=== PATIENT | male | born 1990 | race Caucasian/White ===

== ENCOUNTER → 2018-12-14 | Outpatient (CLI) | payer OTHER, SELFPAY ==
[2018-12-14 10:28] VITALS: BMI 27.9
[2018-12-14 22:14] LABS: Absolute Lymphocyte Count 2.23 X10^3/uL (0.83-4.51); Absolute Neutrophil Count 2.5 X10^3/uL (2.0-7.7); Basophil# 0.04 X10^3/uL; Basophil% 0.7 % (0-1); Eosinophils% 3.7 % (0-5); Hematocrit 45.9 % (40-54); Hemoglobin 15.8 g/dL (13.0-16.5); Lymphocyte # 2.23 X10^3/ul (4.0); Lymphocyte % 41.1 % (19-41); Mean Corp Hgb Conc 34.4 g/dL (32-36); Mean Corpuscular Hgb 32.9 pg (27.0-32.0); Mean Corpuscular Volume 95.6 fL (80-94); Mean Platelet Vol. 11.1 fl (6.2-12.0); Monocyte# 0.44 X10^3/uL; Monocyte% 8.1 % (0-10); NRBC Flagged by Analyzer 0 % (0-5); Neutrophil # 2.51 X10^3/uL (2.7-7.7); Neutrophil % 46.2 % (47-70); Platelet Count 166 K/mm3 (150-450); RBC Distribution Width CV 11.9 % (11.6-14.6); RBC Distribution Width SD 41.4 fl (35.1-43.9); White Blood Count 5.4 K/mm3 (4.4-11.0)
[2018-12-14 22:34] LABS: Luteinizing Hormone 14.1 mIU/mL; PSA,Total- Diagnostic 0.31 ng/mL (0.0-4.0); Thyroid Stim Hormone (TSH) 1.57 uIU/mL (0.358-3.74)
== END | disposition home or self-care (01) ==
PROVIDERS: Referring Provider Nurse Practitioner; Visit Provider Nurse Practitioner
DX: N52.9 Male erectile dysfunction, unspecified (principal); R79.89 Other specified abnormal findings of blood chemistry
CPT/HCPCS: 83002; 84153; 84403; 84443; 85025

== ENCOUNTER 2023-11-29 10:44 | Emergency (ER) | payer OTHER, SELFPAY ==
[2023-11-29 10:44] VITALS: BP 143/75; PULSE 90; RESP 14; TEMP 35.7; O2SAT 98; BMI 28.0
[2023-11-29] MEDS: morphine 10 MG/ML Syringe 8 MG IM (11:43)
[2023-11-29] MEDS: predniSONE 20 MG Tablet 40 MG PO (11:44)
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
[2023-11-29] MEDS: oxyCODONE 5 MG Tablet PO (12:20)
[2023-11-29 12:22] VITALS: BP 132/66; PULSE 78; RESP 16; TEMP 35.7; O2SAT 98
== END 2023-11-29 12:24 | disposition home or self-care (01) ==
PROVIDERS: Emergency Provider Emergency Medicine; Visit Provider Emergency Medicine
DX: M54.30 Sciatica, unspecified side (principal)
CPT/HCPCS: 96372; 99283

== ENCOUNTER 2023-11-30 11:27 | Observation (INO) | payer OTHER, SELFPAY ==
[2023-11-30] VITALS (7 sets, daily range): BP systolic 125–172; BP diastolic 46–77; PULSE 70–88; RESP 14–20; TEMP 36.6–36.7; O2SAT 95–100; BMI 30.1
--- NOTE | 2023-11-30 12:15 | MRI_ITS ---
STUDY: MRI LUMBAR SPINE WITHOUT CONTRAST REASON FOR EXAM: Male, 33 years old. PAIN X1 WK NKI TECHNIQUE: Standardized fat and water weighted pulse sequences were obtained in the sagittal and axial planes. COMPARISON: None FINDINGS: T12-L1: Normal endplates. Normal disc height, hydration and morphology. Normal bilateral facet joints. Normal central canal and bilateral lateral recesses. Normal bilateral intervertebral neural foramina. Normal lumbar lordosis. There is no substantial scoliosis. Normal conus medullaris that terminates at the L1 level. L1-2: Normal endplates. Normal disc height, hydration and morphology. Normal bilateral facet joints. Normal central canal and bilateral lateral recesses. Normal bilateral intervertebral neural foramina. L2-3: Normal endplates. Normal disc height, hydration and morphology. Normal bilateral facet joints. Normal central canal and bilateral lateral recesses. Normal bilateral intervertebral neural foramina. L3-4: Normal endplates. Small central broad-based posterior disc protrusion otherwise Normal disc height, hydration and morphology. Normal bilateral facet joints. Normal central canal and bilateral lateral recesses. Normal bilateral intervertebral neural foramina. L4-5: Normal endplates. Small central broad-based posterior disc protrusion otherwise Normal disc height, hydration and morphology. Normal bilateral facet joints. Normal central canal and bilateral lateral recesses. Normal bilateral intervertebral neural foramina. L5-S1: Normal endplates. Moderate central posterior disc protrusion. Normal bilateral facet joints. Normal central canal and bilateral lateral recesses. Moderate narrowing bilateral intervertebral neural foramina. Normal visualized sacral ala. Normal visualized paraspinous soft tissue structures. MRI/Spine Lumbar (Routine) IMPRESSION: Moderate central disc protrusion L5-S1. Multiple smaller disc protrusions as above. Electronically Signed: David Meehan MD at 19:01 EDT Reading Location ID and State: [id number] Tel , Service support ,
--- NOTE | 2023-11-30 12:19 | EDS_ITS ---
HPI History of Present Illness Chief Complaint: Back Narrative Narrative: 33-year-old male history of intermittent back pain in the past, presents with increasing low back pain. He states he started having symptoms a week ago yesterday. He was seen in the emergency department last night and was given intramuscular morphine and oxycodone and started on prednisone. He was sent in by the spine surgeon, Dr. Salazar, with concern for increasing back pain, and possible meningeal signs. He denies any saddle anesthesia, but states he has pain in his low back radiating down both legs. He denies loss of bowel or bladder, no fevers or chills, no other symptoms. Pain is worse with movement and relieved by nothing. PFSH PFSH Home Medications ?Medication ?Instructions ?Recorded ?Last Taken ?Type oxycodone 5 mg tablet 5 mg PO Q6H PRN pain 3 days #12 11/29/23 Unknown Rx tabs prednisone 20 mg tablet 40 mg (2 x 20 mg) PO DAILY 5 days 11/29/23 Unknown Rx #10 TABLETS Allergy/AdvReac Type Severity Reaction Status Date / Time No Known Allergies Allergy Verified 11/30/23 11:28 Social History Smoking Status: Never smoker ROS ROS ED ROS Narrative Constitutional: No fever, no chills. HEENT: No sore throat. No neck pain. No loss of vision. No rhinorrhea. Cardiovascular: No chest pain. No palpitations. No pedal edema. Respiratory: No cough, no shortness of breath. Abdominal: No abdominal pain. No nausea. No vomiting. Genitourinary: No dysuria. No hematuria. Musculoskeletal: No myalgias. No arthralgias. Positive low back pain worse with movement, radiating down both legs. Neurologic: No headaches. No dizziness. No lightheadedness. No loss of bowel or bladder. No saddle anesthesia, but states pain in saddle area. Skin: No rash. No change in color. Psychiatric: No depression. No anxiety. EXAM Physical Exam Narrative Exam Narrative: Afebrile. Vital signs noted. Nontoxic-appearing. HEENT: Normocephalic. Atraumatic. PERRL, EOMI. Neck soft and supple. No point tenderness or step off. No meningismus. Cardiovascular: Regular rate and rhythm. No murmurs, rubs, or gallops appreciated. Respiratory: No tachypnea. Lungs clear to auscultation bilaterally. Gastrointestinal: Abdomen soft, nontender, with normoactive bowel sounds. No rebound or guarding. Neurological: Awake. Alert. Nonfocal, nonlateralizing. EHL intact bilaterally. Limited range of motion bilateral lower extremities secondary to pain. Skin: No rash. Normal color. No pallor. Musculoskeletal: No pedal edema. Full range of motion extremities. Diffuse tenderness to palpation lumbar spine. No step-off. Const Vital Signs: 11/30/23 11:28 11/30/23 13:27 11/30/23 14:54 Temperature 98.0 F Temperature Source Temporal Pulse Rate 88 74 82 Respiratory Rate 16 20 H 14 Blood Pressure 142/62 H 138/54 H 147/48 H Blood Pressure Mean 88 82 81 Pulse Ox 98 100 95 Oxygen Delivery Method Room Air Room Air Nasal Cannula 11/30/23 16:00 Temperature Temperature Source Pulse Rate 70 Respiratory Rate 18 Blood Pressure 159/46 H Blood Pressure Mean 83 Pulse Ox Oxygen Delivery Method Room Air MDM MDM MDM Narrative Medical decision making narrative: Differential diagnosis includes disc herniation versus acute discitis versus cauda equina syndrome. In discussion with Dr. Salazar, there was concern for meningeal infection as he reportedly had a positive chin to chest. On my examination, I doubt meningitis based on his clinical examination as he is afebrile, and is able to turn his neck [id number]. He states he feels pain in his low back more when he tries to delgado his neck forward. Additionally, I have lower suspicion for cauda equina based on his examination, he was able to urinate upon arrival, and denies saddle anesthesia or urinary retention. I will obtain baseline laboratories. Additionally, MRI of the low back will be obtained. He was administered fentanyl 50 mcg for analgesia. In discussion with MRI, there was going to be until later in the evening that he would get his MRI. He did require an additional 50 mcg of fentanyl, then prior to the MRI 1 mg of Dilaudid. I reviewed his laboratory work and he has slight e levation of his white count at 14.0, which may be from his recent use of steroids including Kenalog. Hemoglobin normal at 13.8, hematocrit 42.4, platelet count normal at 244. Electrolyte panel shows BUN slightly elevated at 22 which I think is nonspecific and creatinine 1.12 with glucose 112. Anion gap is normal at 5. Patient was able to urinate prior to arrival so I do not think he has urinary retention or concerning signs for cauda equina. He was able to produce another urine sample, and urinalysis was reviewed and there is no evidence of infection. I do not feel that he has meningitis or meningeal symptoms as he is able to move his head [id number], and [id number]. I reviewed the radiology report of the MRI of the lumbar spine. He does have moderate central disc protrusion of L5-S1 with small disc protrusions listed in detail on the report. He does have intervertebral foramen narrowing as well. The results were discussed with Dr. Tho Salazar with spine surgery. As the patient still feels the same and is sitting in a chair upright as he is unable to transfer to the cot, was felt that the patient should be admitted/assigned observation for intractable back pain and disc protrusion. It was not felt that he would require immediate surgery on his spine, but Dr. Salazar did suggest consulting him, and pain management for possible injection for pain control. Patient will be discussed with Dr. Scarlett Judge for observation. He is in stable condition. History & Record Review Discussion w/independent historian: Patient and Significant other Additional record(s) reviewed:: Prior ED visit Lab Data Attestation: I reviewed the patient's lab results. Labs: Laboratory Results - last 24 hr 11/30/23 11/30/23 12:28 13:26 WBC 14.0 H RBC 5.17 Hgb 13.8 Hct 42.4 MCV 82.0 MCH 26.7 L MCHC 32.5 RDW Std Deviation 45.7 H RDW Coeff of Joe 15.2 H Plt Count 244 MPV 9.6 Immature Gran % (Auto) 0.400 Neut % (Auto) 91.4 H Lymph % (Auto) 6.1 L [place] % (Auto) 2.0 Eos % (Auto) 0.0 Baso % (Auto) 0.1 Absolute Neuts (auto) 12.8 H Absolute Lymphs (auto) 0.86 Nucleated RBC % 0 Sodium 136 Potassium 4.3 Chloride 105 Carbon Dioxide 26.0 Anion Gap 5 BUN 22 H Creatinine 1.12 Estim Creat Clear Calc 106.64 Est GFR (MDRD) Af Amer 96 Est GFR (MDRD) Non-Af 79 BUN/Creatinine Ratio 19.6 Glucose 112 H Calcium 9.3 Total Bilirubin 0.50 AST 19 ALT 29 Alkaline Phosphatase 40 L Total Protein 7.2 Albumin 3.7 Globulin 3.5 Albumin/Globulin Ratio 1.1 Urine Color Yellow Urine Clarity Clear Urine pH 6.5 Ur Specific [place] 1.010 Urine Protein Negative Urine Glucose (UA) Normal Urine Ketones Negative Urine Occult Blood Negative Urine Nitrite Negative Urine Bilirubin Negative Urine Urobilinogen Normal Ur Leukocyte Esterase Negative Urine RBC 0 SEEN Urine WBC 0 SEEN Ur Squamous Epith Cells 0 SEEN Urine Bacteria RARE Urine Mucus 0 SEEN Radiography Diagnostic Testing: Clinical Impression(s) from Imaging Studies Lumbar Spine MRI 11/30/23 12:15 IMPRESSION: Moderate central disc protrusion L5-S1. Multiple smaller disc protrusions as above. Electronically Signed: David Meehan MD at 19:01 EDT Reading Location ID and State: [address] [place] [address] Tel , Service support , Discharge Plan Dx/Rx/DC Orders Clinical Impression: Intractable low back pain, Protruded lumbar disc Disposition Disposition: Acute Care Hospital [facility]
[2023-11-30] MEDS: fentaNYL 100 MCG/2 ML Ampul 50 MCG IV ×2 (12:24→14:51)
[2023-11-30 12:36] LABS: Absolute Lymphocyte Count 0.86 X10^3/uL (0.83-4.51); Absolute Neutrophil Count 12.8 X10^3/uL (2.0-7.7); Basophil# 0.02 X10^3/uL; Basophil% 0.1 % (0-1); Hematocrit 42.4 % (40-54); Hemoglobin 13.8 g/dL (13.0-16.5); Lymphocyte # 0.86 X10^3/ul (0.83-4.51); Lymphocyte % 6.1 % (19-41); Mean Corp Hgb Conc 32.5 g/dL (32-36); Mean Corpuscular Hgb 26.7 pg (27.0-32.0); Mean Platelet Vol. 9.6 fl (6.2-12.0); Monocyte# 0.28 X10^3/uL; NRBC Flagged by Analyzer 0 % (0-5); Neutrophil # 12.82 X10^3/uL (2.7-7.7); Neutrophil % 91.4 % (47-70); Platelet Count 244 K/mm3 (150-450); RBC Distribution Width CV 15.2 % (11.6-14.6); RBC Distribution Width SD 45.7 fl (35.1-43.9); Red Blood Count 5.17 M/mm3 (4.6-6.2)
[2023-11-30 12:53] LABS: ALB/GLOB Ratio 1.1 RATIO (0.9-2.4); AST(SGOT) 19 U/L (15-37); Alanine Aminotransfer ALT/SGPT 29 U/L (16-61); Albumin, Serum 3.7 g/dL (3.2-5.0); Alkaline Phosphatase 40 U/L (45-117); Anion Gap 5 (5-15); BUN 22 mg/dL (7-18); BUN/Creat Ratio 19.6 RATIO (10-20); Calcium,Total 9.3 mg/dL (8.5-10.1); Chloride 105 mmol/L (98-107); Creatinine, Serum 1.12 mg/dL (0.70-1.30); EST Glomerular Filtration Rate 79 mL/min (>60); Est Glom Filt Rate - Afr Amer 96 mL/min (>60); Estimated Creatinine Clearance 106.64 ml/min; Globulin 3.5 g/dL (2.2-4.2); Glucose 112 mg/dL (74-106); Potassium 4.3 mmol/L (3.5-5.1); Protein, Total 7.2 g/dL (6.4-8.2); Sodium Level 136 mmol/L (136-145)
[2023-11-30 13:33] LABS: Mucous, Urine 0 SEEN /hpf (<or=2+); Red Blood Cells-Urine 0 SEEN /hpf (0-5); Squamous Epithelial Cells - UA 0 SEEN /hpf (0-5); White Blood Cells 0 SEEN /hpf (0-5)
[2023-11-30 13:41] LABS: Color, Urine Yellow (Yellow); Glucose, Dipstick Normal (Normal); Ketone-Dipstick Negative (Negative); Leukocyte Esterase-Dipstick Negative /ul (Negative); Nitrite-Dipstick Negative (Negative); Occult Blood-Urine Negative /ul (Negative); Protein-Dipstick Negative (Negative); Urine Bilirubin Dipstick Negative (Negative); Urine Clarity Clear (Clear); Urine Urobilinogen Normal (Normal); Urine pH 6.5 (5.0 - 8.0)
[2023-11-30 13:54] LABS: Bacteria RARE /hpf (None Seen)
--- NOTE | 2023-11-30 15:06 | ED.RN ---
REPEAT POTASSIUM 6.2 DR VILLAR AWARE
[2023-11-30] MEDS: HYDROmorphone 1 MG/ML Syringe IV (16:59)
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
[2023-11-30] MEDS: tiZANidine HCl 2 MG Tablet 4 MG PO (22:02)
[2023-11-30] MEDS: Gabapentin 100 MG Capsule PO (22:02)
[2023-11-30] MEDS: MethylPREDNISolone DosePak 4 MG BOX PO (22:03)
[2023-11-30] MEDS: Lidocaine 5% Patch 2 PATCH TOPICAL (22:05)
[2023-11-30] MEDS: 0.9% Normal Saline (1000mL) 1,000 ML 100 ML IV (22:16)
[2023-11-30] MEDS: 0.9% Saline Lock 10 ML Syringe IV (22:18)
[2023-11-30] MEDS: Ketorolac 30 MG/ML Syringe IV (22:39)
[2023-12-01 04:05] VITALS: BP 101/47; PULSE 86; RESP 18; TEMP 36.6; O2SAT 99
[2023-12-01] MEDS: Ketorolac 30 MG/ML Syringe IV (05:25)
[2023-12-01] MEDS: tiZANidine HCl 2 MG Tablet PO (05:29)
[2023-12-01] MEDS: 0.9% Normal Saline (1000mL) 1,000 ML 100 ML IV (07:15)
[2023-12-01 07:26] LABS: Absolute Lymphocyte Count 0.96 X10^3/uL (0.83-4.51); Basophil# 0.02 X10^3/uL; Basophil% 0.2 % (0-1); Hemoglobin 13.2 g/dL (13.0-16.5); Lymphocyte # 0.96 X10^3/ul (0.83-4.51); Lymphocyte % 8.4 % (19-41); Mean Corp Hgb Conc 31.4 g/dL (32-36); Mean Corpuscular Hgb 26.1 pg (27.0-32.0); Mean Platelet Vol. 10.2 fl (6.2-12.0); Monocyte# 0.43 X10^3/uL; Monocyte% 3.7 % (0-10); NRBC Flagged by Analyzer 0 % (0-5); Neutrophil # 10.01 X10^3/uL (2.7-7.7); Neutrophil % 87.2 % (47-70); Platelet Count 224 K/mm3 (150-450); RBC Distribution Width CV 15.9 % (11.6-14.6); RBC Distribution Width SD 47.8 fl (35.1-43.9); Red Blood Count 5.06 M/mm3 (4.6-6.2); White Blood Count 11.5 K/mm3 (4.4-11.0)
[2023-12-01 07:46] LABS: ALB/GLOB Ratio 1.1 RATIO (0.9-2.4); AST(SGOT) 14 U/L (15-37); Alanine Aminotransfer ALT/SGPT 25 U/L (16-61); Albumin, Serum 3.4 g/dL (3.2-5.0); Alkaline Phosphatase 40 U/L (45-117); Anion Gap 2 (5-15); BUN 26 mg/dL (7-18); BUN/Creat Ratio 24.3 RATIO (10-20); Calcium,Total 9.3 mg/dL (8.5-10.1); Chloride 108 mmol/L (98-107); Creatinine, Serum 1.07 mg/dL (0.70-1.30); EST Glomerular Filtration Rate 84 mL/min (>60); Est Glom Filt Rate - Afr Amer 101 mL/min (>60); Estimated Creatinine Clearance 111.63 ml/min; Globulin 3.1 g/dL (2.2-4.2); Glucose 117 mg/dL (74-106); Protein, Total 6.5 g/dL (6.4-8.2); Sodium Level 137 mmol/L (136-145)
[2023-12-01 08:49] VITALS: O2SAT 95
[2023-12-01 10:00] VITALS: BP 129/58; PULSE 90; RESP 16; TEMP 36.7; O2SAT 99
[2023-12-01] MEDS: Celecoxib 200 MG Capsule PO (10:08)
[2023-12-01] MEDS: Enoxaparin 40 MG/0.4 ML Syringe SC (10:08)
[2023-12-01] MEDS: Pantoprazole Sodium 20 MG Tablet PO (10:08)
[2023-12-01] MEDS: Lidocaine 5% Patch 2 PATCH TOPICAL (10:08)
[2023-12-01] MEDS: oxyCODONE 5 MG Tablet PO (10:13)
[2023-12-01] MEDS: Gabapentin 300 MG Capsule PO (10:14)
--- NOTE | 2023-12-01 12:47 | DS.PCM_ITS ---
Providers Date of Admission: 11/30/23 Date of Discharge: 12/01/23 Primary Care Physician: Dr. Lanie Roberts Reason For Visit: INTRACTABLE BACK PAIN Diagnosis Discharge Diagnosis (1) Intractable low back pain: Status: Acute Code(s): M54.59 - Other low back pain (2) Protruded lumbar disc: Status: Acute Code(s): M51.26 - Other intervertebral disc displacement, lumbar region Medications at Discharge Home Medications oxycodone 5 mg tablet 5 mg PO Q6H PRN pain 3 days #12 tabs 11/29/23 dextroamphetamine-amphetamine 15 mg tablet 1 PO TID 11/30/23 tadalafil 5 mg tablet 5 mg PO DAILY 11/30/23 testosterone cypionate 200 mg/mL intramuscular oil 100 mg subcut 11/30/23 acetaminophen 500 mg oral powder packet (Tylenol Extra Strength) 1,000 mg PO Q8 #12 ea 12/01/23 celecoxib 200 mg capsule 200 mg PO BID #28 caps 12/01/23 gabapentin 300 mg capsule 300 mg PO TIDCM #189 caps 12/01/23 lidocaine 5 % topical patch 2 patch topical DAILY #30 ea 12/01/23 pantoprazole 20 mg tablet,delayed release 20 mg PO DAILY #14 tabs 12/01/23 tizanidine 2 mg tablet 4 mg (2 x 2 mg) PO Q8H #42 tabs 12/01/23 Hospital Course Operations None Procedures - (MRI lumbar spine) Summary of Care Provided Minutes Spent on Discharge: 39 Hospital Course: Mr. Stone is a 33-year-old white male who presented to the emergency department at [facility] on 11/30/2023 with intractable low back pain. Patient reported he started experiencing back discomfort about a week prior to presentation and he felt as if his back was tightening up eventually it was waking him up in the middle of the night and it progressed to the point where he was unable to stand or support his weight because of the pain. He had significant diaphoresis and a near syncopal episode due to pain which prompted him to be evaluated by chiropractor. Adjustments were performed and he had worsening pain since that point in time with some intermittent radiculopathy including pain but no paresthesias or motor changes. He saw his primary care physician and he was given a Kenalog injection and started on Flexeril. He was also advised to rotate Tylenol with ibuprofen. He had some improvement but not significant improvement so he came to emergency department to be evaluated initially on 11/29/2019 for at which time he was discharged with a referral to orthopedic spine surgery and was given narcotics. He went home and within 24 hours had come back to the emergency department due to ongoing pain. He reported that it was 10 out of 10 in severity and sharp and stabbing. He had an achiness down his right leg but again had no motor changes or paresthesias. He denied any saddle anesthesia and had no bowel or bladder changes. Vital signs on presentation were overtly unremarkable. His CBC was unremarkable. BMP was overtly unremarkable. An MRI of the lumbar spine without contrast was obtained and showed a moderate central disc protrusion at L 5-S1 with multiple smaller disc protrusions. The case was discussed by the emergency department with Dr. Salazar who recommended admission and medical management but no surgical intervention was required. He was admitted to the medical floor and placed on the pain regimen. His pain had improved some to the point where he was able to be ambulatory but he was still having ongoing pain. He was hoping the pain management would be will to see him during his hospital course however there is no pain management available this weekend and they are not back in the office until Sunday of next week 12/04/2023. Patient did feel he could go home and manage with the medications we have had him on here and follow-up as an outpatient. We got a walker for him to assist with ambulation. He was placed on Celebrex 200 mg p.o. twice daily along with GI prophylaxis with Protonix 20 mg daily and a 2-week prescription was written. He was given a prescription for Zanaflex to take scheduled for the next week with 1 refill, I have asked him to take scheduled Tylenol 1000 mg 3 times daily and lidocaine patches were prescribed along with gabapentin 300 mg 3 times daily. Steroids were discontinued as there is no significant data to suggest benefit in low back pain. We obtained a walker for him and he was able to be discharged home in stable condition on 12/21/2023. A prescription for physical therapy as an outpatient was given to the patient and I encouraged him to call on Sunday to set up an appointment to be seen as soon as possible and a referral for outpatient pain management follow-up with instructions to call on Sunday to set up appointment to be seen next week as soon as possible. Patient was discharged home in stable condition on 12/01/2023. He was advised of changes in his exam which would result in him requiring more urgent surgery including the onset of acute weakness in his leg, or bowel or bladder function changes as well as saddle anesthesia and advised him to return emergently to the emergency department if those symptoms develop. Discharge diagnoses: Lumbar radiculopathy with intractable low back pain secondary to H&P at L5-S1 ADHD Erectile dysfunction Leukocytosis-stress response/steroids Hyperglycemia secondary to steroid use as an outpatient Physical Exam Const alert, oriented x3, no apparent distress, no limitations, healthy appearing and well nourished; Negative for average body habitus Constitutional Narrative: Muscular, middle-aged, white male, sitting up in a chair at the bedside, appears comfortable at this time, does not appear toxic General Appearance: cooperative, comfortable, well kempt and well developed Orientation / Consciousness: awake, oriented to person, oriented to place and oriented to time Exam Limitations: no limitations HEENT normocephalic, head/scalp atraumatic, hearing grossly normal bilaterally and moist oral mucous membranes HEENT Narrative: Mallampati 3, dentition is good, no thrush Eyes PERRL, EOMs intact bilaterally and conjunctivae normal Eyes Narrative: No scleral icterus Neck no lymphadenopathy and supple Neck Narrative: Trachea midline, no thyroid enlargement Resp normal respiratory effort, no retractions, no use of accessory muscles and clear to auscultation bilaterally Auscultation: Negative for rales, rhonchi or wheezes Cardio regular rate, regular rhythm, S1 normal heart sound, S2 normal heart sound, no murmurs, no rub, no gallops, no clicks and no JVD GI normal to inspection, nondistended, normoactive bowel sounds, soft to palpation and non-tender Extremity no clubbing, cyanosis or edema Skin no rashes or lesions noted, no wounds, skin turgor normal and no jaundice Neuro oriented x3, CN's II-XII intact bilaterally, moves all extremities and no focal motor deficits Neuro Narrative: Lower extremity sensation is normal, movement is limited by low back pain but no focal deficit present Speech: speech normal Psych affect normal Psych Narrative: Very friendly, eye contact is good, appropriate, interacts well and answers all questions Weight / BMI Weight Weight: 95.254 kg Body Mass Index (BMI) 30.1 ABG / Lab / Microbiology Data 12/01/23 06:40 12/01/23 06:40 Laboratory: Laboratory Results - last 24 hr 11/30/23 12:28: Sodium 136, Potassium 4.3, Chloride 105, Carbon Dioxide 26.0, Anion Gap 5, BUN 22 H, Creatinine 1.12, Estim Creat Clear Calc 106.64, Est GFR (MDRD) Af Amer 96, Est GFR (MDRD) Non-Af 79, BUN/Creatinine Ratio 19.6, Glucose 112 H, Calcium 9.3, Total Bilirubin 0.50, AST 19, ALT 29, Alkaline Phosphatase 40 L, Total Protein 7.2, Albumin 3.7, Globulin 3.5, Albumin/Globulin Ratio 1.1 11/30/23 13:26: Urine Color Yellow, Urine Clarity Clear, Urine pH 6.5, Ur Specific [place] 1.010, Urine Protein Negative, Urine Glucose (UA) Normal, Urine Ketones Negative, Urine Occult Blood Negative, Urine Nitrite Negative, Urine Bilirubin Negative, Urine Urobilinogen Normal, Ur Leukocyte Esterase Negative, Urine RBC 0 SEEN, Urine WBC 0 SEEN, Ur Squamous Epith Cells 0 SEEN, Urine Bacteria RARE, Urine Mucus 0 SEEN 12/01/23 06:40: WBC 11.5 H, RBC 5.06, Hgb 13.2, Hct 42.0, MCV 83.0, MCH 26.1 L, MCHC 31.4 L, RDW Std Deviation 47.8 H, RDW Coeff of Joe 15.9 H, Plt Count 224, MPV 10.2, Immature Gran % (Auto) 0.500, Neut % (Auto) 87.2 H, Lymph % (Auto) 8.4 L, [place] % (Auto) 3.7, Eos % (Auto) 0.0, Baso % (Auto) 0.2, Absolute Neuts (auto) 10.0 H, Absolute Lymphs (auto) 0.96, Nucleated RBC % 0, Sodium 137, Potassium 5.0, Chloride 108 H, Carbon Dioxide 27.0, Anion Gap 2 L, BUN 26 H, Creatinine 1.07, Estim Creat Clear Calc 111.63, Est GFR (MDRD) Af Amer 101, Est GFR (MDRD) Non-Af 84, BUN/Creatinine Ratio 24.3 H, Glucose 117 H, Calcium 9.3, Total Bilirubin 0.30, AST 14 L, ALT 25, Alkaline Phosphatase 40 L, Total Protein 6.5, Albumin 3.4, Globulin 3.1, Albumin/Globulin Ratio 1.1 Radiography Diagnostic Testing: Radiology Impression Lumbar Spine MRI 11/30/23 12:15 IMPRESSION: Moderate central disc protrusion L5-S1. Multiple smaller disc protrusions as above. Electronically Signed: David Meehan MD at 19:01 EDT , D/C Instructions Discharge Diet: No restrictions Discharge Activity: Use Walker (Okay to progress slowly off of walker if pain improves) Return to work on: 12/08/23 (Would avoid work until cleared by pain management) May resume sexual activity in: No Restrictions (As tolerated) Weight Bearing Status: Weight bearing as tolerated Lifting Restrictions: Avoid lifting at this time Additional Instructions: Return to the emergency department if you develop weakness in your leg, saddle anesthesia per our discussion, inability to urinate or changes in your bowel function Meaningful Use Info Meaningful Use Meaningful Use Diagnoses (Choose all that apply): None applicable Ischemic Stroke Statin Dosing Therapy Reference: STATIN DOSE THERAPY REFERENCE: * Patients > 75 years receive moderate or high dose statin therapy. * Patients 75 years or YOUNGER should receive HIGH intensity statin dose unless contraindicated. You will be required to document reason for non-treatment if statin daily dose does not meet guidelines. HIGH DOSE STATIN THERAPY DAILY Atorvastatin > than or = to 40 mg Rosuvastatin > than or = to 20 mg Amlodipine + Atorvastatin > than or = to 2.5/40 mg Ezetimibe + Simvastatin 10/80 mg Simvastatin 80mg Discharge Plan Admission Admit Date/Time: 11/30/23 19:27 Primary Reason for Your Visit: Intractable back pain Attending Provider: Heike White Primary Care Provider: Lanie Roberts Consulting Providers: Scarlett Judge Instructions Additional Instructions / Restrictions: 1. Please call pain management office on Sunday morning to set up an appointment to be seen next week with Dr. Ovalles 2. Call Sunday to set up an appointment for physical therapy 3. Use walker as needed but okay to progress as able Discharge Orders/Prescriptions Prescriptions: New Tylenol Extra Strength 500 mg powder in packet 1,000 mg PO Q8 Qty: 12 0RF Rx Instructions: Take no more than 3 g daily and do this only for about 2 to 3 weeks or shorter if needed last/does not have to be powder packets can be tablets celecoxib 200 mg Capsule 200 mg PO BID Qty: 28 0RF gabapentin 300 mg Capsule 300 mg PO TIDCM Qty: 189 0RF lidocaine 5 % Adhesive Patch,Medicated 2 patch topical DAILY Qty: 30 0RF Protocol: *Topical Application Instructions APPLICATION INSTRUCTIONS: Lumbar spine tizanidine 2 mg Tablet 4 mg PO Q8H Qty: 42 1RF pantoprazole 20 mg Tablet,Delayed Release (Dr/Ec) 20 mg PO DAILY Qty: 14 0RF Rx Instructions: Take while on Celebrex Continued oxycodone 5 mg tablet 5 mg PO Q6H PRN (Reason: pain) 3 Days Qty: 12 0RF dextroamphetamine-amphetamine 15 mg tablet 1 PO TID testosterone cypionate 200 mg/mL oil 100 mg subcut tadalafil 5 mg tablet 5 mg PO DAILY Discontinued prednisone 20 mg tablet 40 mg PO DAILY 5 Days Qty: 10 0RF Referrals / Follow Up: Zeeshan Ovalles MD [Med Staff - Active Staff] - Within 1 Week (Call Sunday to set up an appointment) Lanie Roberts [Primary Care Provider] - Disposition Disposition (needs filled in before D/C Order can be placed): Home, Self Care Charges/Coding Visit Charges Inpatient E&M: 98812 Disch Hosp >30min
--- NOTE | 2023-12-01 13:36 | CASEMGMT ---
AMI MATTHEWS NOTE: Pt being discharged. Per Dr White, she has provided pt w/script for OP therapy and states he needs a walker. Script for FWW obtained from Dr White. RN CASSIE to room. Pt sitting up in chair, in room visiting. states plans are for pt to go to OP therapy @ [facility] and states she will call on Sunday to schedule appt. Discussed walker. Pt and deny having preference of DME co, made aware [facility] is affiliated w/[facility], and agreeable to [facility]. Pt provided w/FWW from [facility] [employer] [facility] and given to pt. Consignment form signed by pt, form given to pt, and copy placed on pt's chart after faxing to [employer] along w/script and facesheet. Therapy eval orders are in. Pt aware but states he does not feel that he needs this before going home. Pt and deny having other discharge needs/concerns. Gwen ALVES RN, CM
[2023-12-01] MEDS: tiZANidine HCl 2 MG Tablet 4 MG PO (13:39)
== END 2023-12-01 14:15 | disposition home or self-care (01) ==
LOC: ED 19:27 → MS3 20:48
PROVIDERS: Admitting Provider Family Medicine; Emergency Provider Emergency Medicine; Visit Provider Internal Medicine
DX: M51.16 Intervertebral disc disorders with radiculopathy, lumbar region (principal); R55 Syncope and collapse; D72.829 Elevated white blood cell count, unspecified; N52.9 Male erectile dysfunction, unspecified; R73.9 Hyperglycemia, unspecified; F90.9 Attention-deficit hyperactivity disorder, unspecified type; M51.17 Intervertebral disc disorders with radiculopathy, lumbosacral region; T38.0X5A Adverse effect of glucocorticoids and synthetic analogues, initial encounter; N18.2 Chronic kidney disease, stage 2 (mild); R03.0 Elevated blood-pressure reading, without diagnosis of hypertension
CPT/HCPCS: 36415; 72148; 80053; 81001; 85025; 94668; 96361; 96372; 96374; 96375; 96376; 99221; 99283; J7030; A4216; G0378

== ENCOUNTER 2024-01-25 13:30 | Outpatient (RCR) | payer OTHER, SELFPAY ==
--- NOTE | 2023-12-28 16:14 | HP.PTEVAL_ITS ---
Patient's Visit Information Visit Information Visit Information: SONJA WHITAKER is a 33 year old M referred to Physical Therapy by Dr. Heike White DO with a diagnosis of LUMBAR RADICULOPLATY. 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 Patient developed lumbar pain November 21 and in he middle of night unable to stand to due severity of pain . Patient was went to ER on 11/29 then d/c to 11/30 . Patient had MRI Moderate central disc protrusion L5-S1. Multiple smaller disc protrusions. Patient was d/c with fww and pain medication gabapentin/flexural/muscle relaxer . Patient seen pain management had epidural injection helped patient to walk and patient is 80 % better,although pain is returning to dull pain ache buttuckes. Symptoms located symmetrical LS and buttocks. Aggravating bending ,lifting , sitting .Alleviating factors rest extended walking/standing increases . Coughing/sneezing/straining-Denies paresthesia/tingling-. No h/o back pain. 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 Patient pain can affects sleeping but but new mattress. Patient pain affects QOL and function/job demands. Patient goals to decrease pain and return to prior level of function. 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 Pain Bilateral Back: Pain Intensity (Out of 10): 5 Pain Intensity Range: 10 Bilateral Buttocks: Pain Intensity (Out of 10): 5 Pain Intensity Range: 10 Objective Objective: POSTURE: reduce lordosis GAIT: ambulates with reciprocal pattern SYMMETRIES: align PALAPTION: unremarkable NEURO: denies paresthesia/tingling,reflexes L3-4,L4-5,L5-S 1 3/3 FLEXABILITY: min tight LUMBAR ROM: flexion min loss ,extension min loss ,side glides min loss MMT: quads/hams 4/5 ,hip flexion 4/5 ,ankle 5/5 Special Tests L/S Slump test left side: Negative L/S Slump test right side: Negative L/S Left Straight Leg Raise: Negative L/S Right Straight Leg Raise: Negative Lumbar Standing: Flexion - Mechanical Response: No effect Lumbar Standing: Flexion - Symptoms During Testing: Increases Lumbar Standing: Flexion - Symptoms After Testing: Worse Lumbar Standing: Extension - Mechanical Response: No effect Lumbar Standing: Extension - Symptoms During Testing: Decreases Lumbar Standing: Extension - Symptoms After Testing: No better Lumbar Standing: Right Side Glides - Mechanical Response: No effect Lumbar Standing: Right Side [place] - Symptoms During Testing: No effect Lumbar Standing: Right Side [place] - Symptoms After Testing: No effect Lumbar Standing: Left Side [place] - Mechanical Response: No effect Lumbar Standing: Left Side [place] - Symptoms During Testing: No effect Lumbar Standing: Left Side [place] - Symptoms After Testing: No effect Lumbar Lying: Flexion - Mechanical Response: No effect Lumbar Lying: Flexion - Symptoms During Testing: Increases Lumbar Lying: Flexion - Symptoms After Testing: Worse Lumbar Lying: Extension - Mechanical Response: No effect Lumbar Lying: Extension - Symptoms During Testing: Decreases Lumbar Lying: Extension - Symptoms After Testing: Better Comments:: WITH PROGRESSION OF FORCES Balance/Special Test Scores Oswestry Low Back Score: 26 Goals Goal 1:: Patient to be I with HEP for back Goal 2:: Patient to demonstrate 80% improvement with housework and job demands and working out Goal Time Frame: 4-6 Weeks Goal 3:: Patient to improve lumbar ROM for function of recovery to lift Goal Time Frame: 4-6 Weeks Goal 4:: Patient to improve back oswestry score by 5 points > to improve . Goal Time Frame: 4-6 Weeks Goal 5:: Patient to be able to return to prior level of activity without limitations Goal Time Frame: 4-6 Weeks Rehabilitation Potential Physical Therapy Diagnosis: Patient has derangement below knee with symptoms symmetrical with MRI showing central protruding disc with pain worse with flexion ,bending better with extension and increases with positioning and motion testing thus benefit from skilled PT Rehabilitation Potential: Good Anticipated Interventions Patient/Client Instruction: Educate patient on: Condition and Plan of Care For the Purpose of:: To decrease pain, To increase ROM, To improve muscle performance and motor function, To improve ability to perform ADL's, To increase tolerance to activity/condition/position, To improve performance and independence with ADL's, To improve ability of physical actions for home/commu nity/work/leisure, To improve health of tissue, To decrease soft tissue restriction, To increase flexibility/ROM and To prevent re-injury Therapeutic Exercise to Include: Strength training, Endurance training, Body mechanics, Postural training, Flexibilty training, Dynamic Lumbar Stabilization and Jake Exercises For the Purpose of:: To decrease pain, To increase ROM, To improve muscle performance and motor function, To increase tolerance to activity/condition/position, To improve ability of physical actions for home/community/work/leisure, To improve health of tissue, To decrease soft tissue restriction, To increase flexibility/ROM and To prevent re-injury Manual Therapy Techniques to Include: Mobilization Comment: LUMBAR For the Purpose of:: To decrease pain, To increase ROM, To improve health of tissue, To decrease soft tissue restriction and To increase flexibility/ROM TENS: Yes IF ES: Yes Cryotherapy (ice pack, ice massage): Yes Thermo therapy (hot pack): Yes Ultrasound (thermal/non thermal): Yes For the Purpose of:: To decrease pain, To increase ROM, To increase oxygenation perfusion, To improve muscle performance and motor function, To improve health of tissue and To decrease soft tissue restriction Text: Thank you for the opportunity to evaluate your patient. For Medicare and Medicare HMO plans, please review the plan of care and approve it. It will need to be FAXED BACK to us at [phone] for Medicare purposes. For Medicare only, by signing this I certify the plan of care. Please let me know if there are questions or concerns regarding this plan of care. Physician Signature: D ate:
--- NOTE | 2024-01-25 14:02 | HP.PTDCSUM ---
Discharge Summary D/C summary: It has been my pleasure to treat SONJA WHITAKER referred by Dr. Heike White DO, with the diagnosis of LUMBAR RADICULOPLATY for a total of 8 visit(s). Discharge Date: 01/25/24 Please see the following information for a summary of their discharge status. Subjective Subjective: Doing good ,return to gradually with increasing weights at gym Plan to f/u pain management Pain Bilateral Back: Pain Intensity (Out of 10): 0 Bilateral Buttocks: Pain Intensity (Out of 10): 0 Overall Improvement % Improvement: 90 Objective Objective/Function: POSTURE: reduce lordosis GAIT: ambulates with reciprocal pattern SYMMETRIES: align PALAPTION: unremarkable NEURO: denies paresthesia/tingling,reflexes L3-4,L4-5,L5-S 1 3/3 FLEXABILITY: min tight LUMBAR ROM: flexion min loss ,extension min loss ,side glides min loss MMT: quads/hams 4/5 ,hip flexion 4/5 ,ankle 5/5 Goals Goal 1:: Patient to be I with HEP for back Goal Progress: Goal Met Goal 2:: Patient to demonstrate 80% improvement with housework and job demands and working out Goal Progress: Goal Met Goal 3:: Patient to improve lumbar ROM for function of recovery to lift Goal Progress: Goal Met Goal 4:: Patient to improve back oswestry score by 5 points > to improve . Goal Progress: Goal Met Goal 5:: Patient to be able to return to prior level of activity without limitations Goal Progress: Goal Met Plan Plan: D.C to gym program D/C Information Discharge Comments: HEP d/c sentence: If there are questions or concerns regarding this patient's physical therapy, please feel free to call me at [phone]. Thank you for the referral of this patient. Sincerely, Toney Santo, PT, Cert MDT, OCS Balance/Gait/Functional tests Balance/Special Test Scores Oswestry Low Back Score: 3 Improvement % Improvement: 90
== END 2024-01-25 19:00 | disposition home or self-care (01) ==
LOC: PT 13:30
PROVIDERS: Referring Provider Internal Medicine; Visit Provider Internal Medicine
DX: M54.16 Radiculopathy, lumbar region (principal)
CPT/HCPCS: 97014; 97110; 97162; 97530; G0283

== ENCOUNTER 2024-02-01 07:08 | Day surgery (SDC) | payer OTHER, SELFPAY ==
[2024-02-01] VITALS (7 sets, daily range): BP systolic 99–131; BP diastolic 34–69; PULSE 57–80; RESP 16–18; TEMP 36.2–36.8; O2SAT 99–100; BMI 29.0
== END 2024-02-01 09:36 | disposition home or self-care (01) ==
LOC: EN 07:11 → AC 07:12
PROVIDERS: Visit Provider Surgery
PROC: 0DJD8ZZ Inspection of Lower Intestinal Tract, Via Natural or Artificial Opening Endoscopic (ICD-10-PCS; CPT 45378; principal; 2024-02-01 08:10)
DX: K62.5 Hemorrhage of anus and rectum (principal); K64.9 Unspecified hemorrhoids; Z87.19 Personal history of other diseases of the digestive system
CPT/HCPCS: 45378; A4216; J2405